=== PATIENT | female | born 2005 | race Caucasian/White ===

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

== ENCOUNTER 2023-05-30 21:04 | Emergency (ER) | payer BC, OTHER ==
[~2023-05-30] VITALS: Ht 175.3 cm; Wt 88.6 kg
[2023-05-30 21:05] VITALS: BP 155/105; TEMP 97.7; O2SAT 97
[2023-05-31] MEDS ORDERED: NAPR-837 PO (01:27)
[2023-05-31] MEDS: NAPROXEN 250 MG TAB PO ONE (01:45)
== END 2023-05-31 02:34 | disposition home or self-care (01) ==
LOC: M ED 21:04
DX: S46.911A Strain of unspecified muscle, fascia and tendon at shoulder and upper arm level, right arm, initial encounter (principal); Y92.9 Unspecified place or not applicable; Y93.9 Activity, unspecified; Y99.9 Unspecified external cause status; Z79.1 Long term (current) use of non-steroidal anti-inflammatories (NSAID)

== ENCOUNTER → 2023-06-03 | Outpatient (CLI) | payer BC, OTHER ==
[~2023-06-03] MED LIST: NAPR-837 PO
== END ==
LOC: M SOG 08:23
PROVIDERS: ATTEND Physician Assistant
DX: M25.511 Pain in right shoulder (principal)

== ENCOUNTER → 2023-06-24 | Outpatient (CLI) | payer BC ==
[~2023-06-24] MED LIST changes: +PROHANCE 279.3MG/ML 15ML VIAL As Ordered ONE; +PROHANCE 279.3MG/ML 5ML VIAL As Ordered ONE
== END ==
LOC: M RAD 14:58
PROVIDERS: ATTEND Orthopaedic Surgery Hand Surgery
DX: M79.601 Pain in right arm (principal)
CPT/HCPCS: 73220; A9576